=== PATIENT | female | born 1930 | race Caucasian/White ===

== ENCOUNTER 2018-08-22 19:01 | Emergency (ER) | payer MEDICARE, BC ==
[~2018-08-22] VITALS: Ht 157.5 cm; Wt 58.1 kg
[~2018-08-22 19:01] MED LIST: ASPIRIN81 MG OR; BACTRIM DS1 TAB PO; CLONIDINE0.1 MG OR; GNP RED YEAST RICE OR; HYDRALAZINE25 MG OR; LEVOTHYROXIN25 MC1 PO; LEVOTHYROXIN50 MCG PO; LISINOP/HCTZ1 TA1 PO; LOPRESSOR50 MG OR; MAGNESIUM OXID200 MG; METOPROL TAR100 MG PO; MULTIVITAM10 OR; NO HOME MEDS; ONE DAILY 5050 PLUS; PLAVIX75 MG OR; POTASSIUM99 MG; PRADAXA150 MG PO; PRED FORTE1 % OS; PROBIOTI1 OR; PYRIDIUM200 MG PO; SMZ-TMP DS1 TAB PO; VICODIN ES1 TA1 PO; VITAMI17 PO; VITAMIN D2000 UNIT OR; WARFARIN3 MG PO; XANAX0.25 MG PO
[2018-08-22] MEDS ORDERED: COUMADIN3 MG PO ×2 (19:51→19:53)
[2018-08-22] MEDS ORDERED: LEVOTHYROXIN50 MCG PO (19:53)
[2018-08-22] MEDS ORDERED: METO25TAB PO (19:54)
[2018-08-22] MEDS ORDERED: LISINOP/HCTZ1 TAB PO (19:54)
[2018-08-22 20:06] LABS: HEMOGLOBIN 13.6 g/dl (12.0-16.0); IMMATURE GRANULOCYTES 0.1 % (0.0-5.0); MEAN CELL VOLUME 96.4 fL CALC (80.0-100.0); MEAN CORPUSCULAR HGB 32.8 pG CALC (26.0-32.0); NEUT# 4.42 thou/uL (2.00-7.15); RED BLOOD COUNT 4.15 mill/uL (4.20-5.60); RED CELL DISTRI WIDTH 12.7 % (11.5-15.5)
[2018-08-22 20:10] LABS: ALBUMIN 4.3 g/dL (3.2-5.0); ALKALINE PHOSPHATASE 83 u/l (38-126); ANION GAP 15 (6-22 (CALC)); BILIRUBIN, TOTAL 1.1 mg/dL (0.0-1.4); BUN 11 mg/dL (8-23); BUN/CREATININE RATIO 19 (12-20 (CALC)); CARBON DIOXIDE 24 mmol/l (22-30); CHLORIDE 103 mmol/l (95-108); CREATININE 0.6 mg/dL (0.5-1.0); GFR > 60 ML/MIN (>=60 (CALC)); GFR FOR AFR.AMER. > 60 ML/MIN (>=60 (CALC)); POTASSIUM 4.1 mmol/l (3.5-5.1); SGOT/AST 55 u/l (9-36); SODIUM 139 mmol/l (137-146); TOTAL PROTEIN 7.5 g/dL (6.3-8.2)
[2018-08-22 20:11] LABS: INTERNATIONAL NORMALIZED RATIO 2.8 RATIO (0.7-1.3); PROTHROMBIN TIME 29.3 SECONDS (9.0-12.5)
[2018-08-22 20:22] LABS: MYOGLOBIN 78 ng/mL (0 - 62)
[2018-08-22 21:25] VITALS: BP 135/79
[2018-08-22 21:40] LABS: TSH, 3RD GENERATION 2.64 uIU/mL (0.47 - 4.68)
== END 2018-08-22 21:29 | disposition home or self-care (01) ==
LOC: ED 19:01
PROVIDERS: Emergency Medicine
DX: I10 Essential (primary) hypertension (principal); R51 Headache; I48.91 Unspecified atrial fibrillation

== ENCOUNTER 2019-09-25 | Emergency (ER) | payer MEDICARE, BC ==
[~2019-09-25] MED LIST changes: +COUMADIN3 MG PO; +LISINOP/HCTZ1 TAB PO; +TOPROL XL25 M1 PO
[2019-09-25 02:34] LABS: HEMATOCRIT 42.4 % (37.0-47.0); IMMATURE GRANULOCYTES 0.3 % (0.0-5.0); MEAN CELL VOLUME 97.7 fL CALC (80.0-100.0); MEAN CORPUSCULAR HGB 32.3 pG CALC (26.0-32.0); NEUT# 4.22 thou/uL (2.00-7.15); RED BLOOD COUNT 4.34 mill/uL (4.20-5.60); RED CELL DISTRI WIDTH 13.3 % (11.5-15.5)
[2019-09-25 02:36] LABS: ALBUMIN 4.4 g/dL (3.2-5.0); ALKALINE PHOSPHATASE 81 u/l (38-126); ANION GAP 9 (6-22 (CALC)); BILIRUBIN, TOTAL 1.3 mg/dL (0.0-1.4); BUN 12 mg/dL (8-23); BUN/CREATININE RATIO 25 (12-20 (CALC)); CHLORIDE 103 mmol/l (95-108); CREATININE 0.5 mg/dL (0.5-1.0); GFR > 60 ML/MIN (>=60 (CALC)); GFR FOR AFR.AMER. > 60 ML/MIN (>=60 (CALC)); POTASSIUM 3.7 mmol/l (3.5-5.1); SGOT/AST 39 u/l (9-36); SODIUM 138 mmol/l (137-146); TOTAL PROTEIN 8.2 g/dL (6.3-8.2)
[2019-09-25 02:40] LABS: ACT PARTIAL THROMBO TIME 37.1 SECONDS (20.0-32.5); INTERNATIONAL NORMALIZED RATIO 2.7 RATIO (0.7-1.3); PROTHROMBIN TIME 26.7 SECONDS (9.0-12.5)
[2019-09-25 02:45] LABS: CARBON DIOXIDE 30 mmol/l (22-30)
== END 2019-09-25 06:30 | disposition home or self-care (01) ==
DX: I10 Essential (primary) hypertension (principal); I48.91 Unspecified atrial fibrillation; Z79.01 Long term (current) use of anticoagulants; Z86.73 Personal history of transient ischemic attack (TIA), and cerebral infarction without residual deficits